=== PATIENT | male | born 1965 | race Caucasian/White ===

== ENCOUNTER 2023-04-20 14:21 | Emergency (ER) | payer SELFPAY ==
[2023-04-20] VITALS (10 sets, daily range): BP systolic 145–188; BP diastolic 92–122
[2023-04-20 14:52] LABS: % Basophils 0.5 % (0-2); % Eosinophils 0.1 % (0-6); % Immature Granulocytes 0.5 % (0-0.5); % Lymphocytes 7.5 % (20.5-51.1); % Monocytes 1.8 % (1.7-9.3); % Neutrophils 89.6 % (42.2-75.2); Absolute Basophils 0.1 10^3/uL (0-0.2); Absolute Immature Granulocytes 0.1 10^3/uL (0-0.05); Absolute Monocytes 0.2 10^3/uL (0.1-0.6); Absolute Neutrophils 11.7 10^3/uL (1.4-6.5); Hematocrit 46.8 % (39.0-52.0); Hemoglobin 16.5 g/dL (13.0-18.0); Mean Corp Hgb Conc. 35.3 g/dL (33.0-37.0); Mean Corpuscular Hgb 30.2 pg (27.0-31.0); Mean Corpuscular Volume 85.6 fL (80.0-94.0); Mean Platelet Volume 9.4 fL (7.4-10.4); Nucleated Red Blood Cells % 0 % (-); Platelet Count 252 10^3/uL (130-400); Red Blood Cell Count 5.47 10^6/uL (4.70-6.10); Red Cell Dist. Width 12.5 % (11.5-14.5)
[2023-04-20 15:04] LABS: ALT (SGPT) 15 U/L (0-50); AST (SGOT) 31 U/L (17-59); Albumin 2.5 g/dl (3.5-5.0); Alkaline Phosphatase 77 U/L (38-126); Blood Urea Nitrogen 12 mg/dl (9-20); Calcium 8.1 mg/dl (8.4-10.2); Carbon Dioxide 28 mmol/L (22-30); Chloride 107 mmol/L (98-107); Glucose 135 mg/dl (70-99); Potassium 4.5 mmol/L (3.5-5.1); Sodium 134 mmol/L (135-145); Total Bilirubin 0.5 mg/dl (0.2-1.3); Total Protein 5.3 g/dl (6.3-8.2); eGFR > 60.00
[2023-04-20 15:16] LABS: Troponin I 0.018 ng/ml
--- NOTE | 2023-04-20 16:25 | ED.GENMED ---
History of Present Illness
<Tori De La Torre PA-C - Last Filed: 04/21/23 11:02>
General
Chief Complaint: Blood Pressure Problem
Source: patient
Exam Limitations: none
Time Seen by Provider: 04/20/23 16:21
Nursing documentation reviewed up to this point in time: agreed with
Travel History
Have you had any contact with someone who has COVID-19?: No
Do you have any symptoms of coronavirus? Fever > 100 degrees, chills, cough, shortness of breath, sore throat, loss of taste or smell, muscle aches, or headache?: No
History of Present Illness
History of Present Illness:
This is a 57-year-old male with past medical history of hypertension presenting to the emergency department today with concerns of high blood pressure and intermittent headaches for past 3 months. Patient states that his current headache has been
much more severe than ones he has had in the past few months. He states that this headache is severe and he feels it all over, is associated with photophobia, nausea, vomiting. He also states that to the headache, he started experience visual
changes and started to see different colors and sparkling in his peripheral vision. Patient denies chest pain, shortness of breath, decreased urinary output, syncopal episodes, dizziness, lightheadedness, recent illnesses, fevers, chills. Patient
states that Excedrin has helped with his symptoms a bit, but have not fully resolved this current headache episode
Review of Systems
<Tori De La Torre PA-C - Last Filed: 04/21/23 11:02>
Review of Systems
All Other Systems: ROS reviewed and negative except as documented in HPI and ROS
Phy Exam
<Tori De La Torre PA-C - Last Filed: 04/21/23 11:02>
Physical Exam
Physical Exam:
General: Pt is awake and alert, No acute distress.
Skin: Warm, dry, and intact without rashes or lesions.
HEENT:
Head: Nc/at. Nontender to palpation. No visible or palpable masses, no depressions or scarring.
Cardiac: RRR with no murmurs, rubs, or gallops. Normal S1/S2.
PV: No clubbing/cyanosis/edema. Pulses: DP and PT 2+ bilaterally.
Pulmonary: Chest wall is symmetric and without deformity. No signs of trauma. Lung sounds are clear in all lobes bilaterally without rales, rhonchi, or wheezes.
Abdomen: Abdomen is soft, symmetric, and non-tender without distention.
Neuro: Patient is AAOx3. CN 2-12 intact. No involuntary movements noted. Good muscle bulk and tone. Strength 5/5 BUE/BLE. Finger to nose, heel to tan, diadokinesia intact.
Course
<Tori De La Torre PA-C - Last Filed: 04/21/23 11:02>
Orders/Labs/Results
Orders:
Orders
04/20/23 14:26
Electrocardiogram (*1) Urgent
Reason for Study: Chest Pain
EKG- Treatment ONCE
04/20/23 14:35
Complete Blood Count/With Diff Urgent
Comprehensive Metabolic Panel Urgent
Troponin I Urgent
04/20/23 16:41
Cardiac Monitoring- Treatment ONCE
Metoprolol [Lopressor] 10 mg IV NOW STA
04/20/23 16:42
CT Head W/o Iv Contrast Urgent
Comment:
Reason For Exam: severe headache, high blood pressure
04/20/23 16:43
Diphenhydramine [Benadryl] 12.5 mg IV NOW STA
Metoclopramide [Reglan] 10 mg IM NOW STA
04/20/23 17:04
Metoclopramide [Reglan] 10 mg IV NOW STA
04/20/23 17:08
0.9% Sodium Chloride 1000 ml [Nss] 1,000 ml IV BOLUS
04/20/23 17:57
Labetalol HCl [Trandate] 10 mg IV NOW STA
04/20/23 18:22
Acetaminophen [Tylenol] 650 mg PO NOW STA
04/20/23 18:33
Labetalol HCl [Trandate] 10 mg IV NOW STA
04/20/23 19:07
Ketorolac [Toradol] 15 mg IV NOW STA
Abnormal Lab Results
04/20/23
14:35
WBC 13.0 H 10^3/uL
(4.8-10.8)
Abs Immat Gran (auto) 0.1 H 10^3/uL
(0-0.05)
Absolute Neuts (auto) 11.7 H 10^3/uL
(1.4-6.5)
Absolute Lymphs (auto) 1.0 L 10^3/uL
(1.2-3.4)
Neutrophils % 89.6 H %
(42.2-75.2)
Lymphocytes % 7.5 L %
(20.5-51.1)
Sodium 134 L mmol/L
(135-145)
Glucose 135 H mg/dl
(70-99)
Calcium 8.1 L mg/dl
(8.4-10.2)
Total Protein 5.3 L g/dl
(6.3-8.2)
Albumin 2.5 L g/dl
(3.5-5.0)
04/20/23 14:35
04/20/23 14:35
Vital Signs
Initial and Last Documented VS:
Initial Vital Signs
Temp Pulse Resp BP Pulse Ox
98.2 F 92 20 188/111 97
04/20/23 14:24 04/20/23 14:24 04/20/23 14:24 04/20/23 14:24 04/20/23 14:24
Last Documented Vital Signs
Temp Pulse Resp BP Pulse Ox
98.2 F 69 16 177/93 97
04/20/23 14:24 04/20/23 20:00 04/20/23 20:00 04/20/23 20:00 04/20/23 16:25
<Wally Hernandez, DO - Last Filed: 04/20/23 20:54>
Orders/Labs/Results
Orders:
Orders
04/20/23 14:26
Electrocardiogram (*1) Urgent
Reason for Study: Chest Pain
EKG- Treatment ONCE
04/20/23 14:35
Complete Blood Count/With Diff Urgent
Comprehensive Metabolic Panel Urgent
Troponin I Urgent
04/20/23 16:41
Cardiac Monitoring- Treatment ONCE
Metoprolol [Lopressor] 10 mg IV NOW STA
04/20/23 16:42
CT Head W/o Iv Contrast Urgent
Comment:
Reason For Exam: severe headache, high blood pressure
04/20/23 16:43
Diphenhydramine [Benadryl] 12.5 mg IV NOW STA
Metoclopramide [Reglan] 10 mg IM NOW STA
04/20/23 17:04
Metoclopramide [Reglan] 10 mg IV NOW STA
04/20/23 17:08
0.9% Sodium Chloride 1000 ml [Nss] 1,000 ml IV BOLUS
04/20/23 17:57
Labetalol HCl [Trandate] 10 mg IV NOW STA
04/20/23 18:22
Acetaminophen [Tylenol] 650 mg PO NOW STA
04/20/23 18:33
Labetalol HCl [Trandate] 10 mg IV NOW STA
04/20/23 19:07
Ketorolac [Toradol] 15 mg IV NOW STA
Abnormal Lab Results
04/20/23
14:35
WBC 13.0 H 10^3/uL
(4.8-10.8)
Abs Immat Gran (auto) 0.1 H 10^3/uL
(0-0.05)
Absolute Neuts (auto) 11.7 H 10^3/uL
(1.4-6.5)
Absolute Lymphs (auto) 1.0 L 10^3/uL
(1.2-3.4)
Neutrophils % 89.6 H %
(42.2-75.2)
Lymphocytes % 7.5 L %
(20.5-51.1)
Sodium 134 L mmol/L
(135-145)
Glucose 135 H mg/dl
(70-99)
Calcium 8.1 L mg/dl
(8.4-10.2)
Total Protein 5.3 L g/dl
(6.3-8.2)
Albumin 2.5 L g/dl
(3.5-5.0)
04/20/23 14:35
04/20/23 14:35
Vital Signs
Initial and Last Documented VS:
Initial Vital Signs
Temp Pulse Resp BP Pulse Ox
98.2 F 92 20 188/111 97
04/20/23 14:24 04/20/23 14:24 04/20/23 14:24 04/20/23 14:24 04/20/23 14:24
Last Documented Vital Signs
Temp Pulse Resp BP Pulse Ox
98.2 F 69 16 177/93 97
04/20/23 14:24 04/20/23 20:00 04/20/23 20:00 04/20/23 20:00 04/20/23 16:25
[place];Tori De La Torre PA-C - Last Filed: 04/21/23 11:02>
MDM/Problems Addressed
Differential Diagnosis Includes:
Differentials include migraine headache, tension headache, intraparenchymal hemorrhage, occipital neuralgia, cluster headache, ischemic stroke
MDM/Problems Addressed:
headache
HTN
Chronic conditions affecting care: HTN
Acute Exacerbation and/or Progression of Chronic Illness: HTN
<Tori De La Torre PA-C - Last Filed: 04/21/23 11:02>
*Pulse Oximetry
Patient hypoxic: no
*EKG
Interpretation: normal
Comparison EKG: no comparison EKG present
Heart Rate: 73
Rate: normal
Rhythm: sinus
[place]: normal axis
Interval: normal interval, normal QT interval and normal SC interval
QRS Pattern: normal QRS
Ischemia: no ischemia
*Air Technician Interpretation
Rate: normal
Interpretation: normal
Heart Rate: 70
Rhythm: sinus
*Critical Care Note
Total Time (30-74mins, 75-104mins- exclusive of procedures): Not Applicable
Data Reviewed
Review of Other/Old Records Reveals: Records (no previous records to review ) and Discharge Summary (no discharge summaries to review in [facility])
Source: patient and records
<JUSTINA Hager Last Filed: 04/21/23 11:02>
Patient Management
Escalation/DeEscalation of care consider admission/obs:
Patient is a 57-year-old male past medical history of hypertension presenting today with a severe headache and concerns regarding his blood pressure for the past [address] scan is negative for any bleed or any other acute intracranial
abnormality. His EKG shows normal sinus rhythm. His history and physical exam is consistent with acute migraine. Patient's blood pressure was able to be controlled with IV labetalol here, and headache controlled was Toradol, Tylenol, and Reglan.
Patient stable for discharge, will start his HC TZ�lisinopril once daily. He will follow-up with his primary
ED Attending Note
<JUSTINA Hager Last Filed: 03/06/24 11:02>
-
Portions of this chart may have been created with voice recognition software.� Occasional wrong word or��sound alike� substitutions may have occurred due to the inherent limitations of voice recognition software.
<Wally Hernandez, - Last Filed: 04/20/23 20:54>
ED Attending Note
Patient seen and examined by attending physician: Yes
I performed a history and physical exam of patient and discussed management with resident, I reviewed resident's note and agree with documented findings and plan of care.: Yes
ED Attending Note:
I have reviewed and agree with history and treatment plan by Toir De La Torre. Patient with normal neurologic exam, hypertensive. Suspect migraine versus hypertensive headache. CT head pending. IV labetalol, Benadryl and Reglan ordered. Blood
pressure improved, headache dissipated. Patient denies any chest pain. Stable for discharge.
Discharge Plan
Departure
Patient Disposition: Home (Routine Discharge)
Date of Disposition: 04/20/23
Time of Disposition: 20:52
Patient with high blood pressure during this ER visit?: Yes
Condition: Good
Discharge Problem:
Migraine, High blood pressure
Instructions: High Blood Pressure (DC), BLOOD PRESSURE
Prescriptions:
New
rizatriptan 10 mg tablet,disintegrating
10 mg PO ONCE MDD 3 PRN (Reason: migraine headache) Qty: 10 0RF
Referrals:
Cari Young MD [Family Provider] - Call in 1-3 days for appt
Activity Restrictions/Additional Instructions:
Please return emergency department should you experience trouble speaking, chest pain, shortness of breath, lightheadedness, fainting spells, or other concerning signs or symptoms.
Please start your lisinopril�HCTZ combo pill tomorrow once daily for your blood pressure, and follow-up with your primary care provider. Continue to log your blood pressure.
Interventions
Interventions:
*Risk Screen - Suicide Last Done: 04/20/23 16:27
*General Assessment Last Done: 04/20/23 16:27
*Neglect/Abuse Screening Last Done: 04/20/23 16:27
*ED COVID-19 Vaccine History Last Done: 04/20/23 16:26
*Nursing Disposition Last Done: 04/20/23 21:02
ED- Cardiac Assessment Last Done: 04/20/23 16:26
ED- Neurological Assessment Last Done: 04/20/23 16:26
ED- Pulmonary Assessment Last Done: 04/20/23 16:26
Discharge Date and Time
Discharge Date/Time: 04/20/23 21:03
[2023-04-20] MEDS: BENADRYL 12.5 MG IV (17:01)
[2023-04-20] MEDS: REGLAN 10 MG IV (17:04)
[2023-04-20] MEDS: LOPRESSOR 10 MG IV (17:07)
[2023-04-20] MEDS: NSS 1000 IV (17:15)
[2023-04-20] MEDS: TRANDATE 10 MG IV ×2 (18:08→18:50)
[2023-04-20] MEDS: TYLENOL 650 MG PO (18:32)
[2023-04-20] MEDS: TORADOL 15 MG IV (19:09)
== END 2023-04-20 21:03 | disposition home or self-care (01) ==
LOC: EMR 14:21
PROVIDERS: Emergency Medicine; EMERGENCY PHYSICIAN Emergency Medicine; FAMILY PHYSICIAN Family Medicine
DX: G43.909 Migraine, unspecified, not intractable, without status migrainosus (principal); I10 Essential (primary) hypertension
CPT/HCPCS: 99285; 96374; 96375 ×4; 96376; 96361; 70450; 80053; 84484; 85025; 93005

== ENCOUNTER 2023-04-27 14:16 | Inpatient (IN) | payer OTHER, SELFPAY ==
[2023-04-27] VITALS (16 sets, daily range): BP systolic 114–193; BP diastolic 70–136
--- NOTE | 2023-04-27 11:28 | ED.GENMED ---
History of Present Illness
General
Chief Complaint: Chest Pain
Source: patient
Exam Limitations: none
Time Seen by Provider: 04/27/23 11:13
Travel History
Have you had any contact with someone who has COVID-19?: No
Do you have any symptoms of coronavirus? Fever > 100 degrees, chills, cough, shortness of breath, sore throat, loss of taste or smell, muscle aches, or headache?: No
History of Present Illness
History of Present Illness:
See MDM
Past History
Past History
ED Past Medical History: HTN and Other (Migraines)
Social History
Tobacco: Non-smoker
Alcohol: None
Phy Exam
Physical Exam
Physical Exam:
See MDM
Scores
Heart Score for Chest Pain Patients
STEMI patient?: No
History: Slightly or Non-Suspicious
ECG: Normal
Age: >45 - <65 years
Risk Factors: 1 or 2 Risk Factors
Troponin: >/= 3 x Normal Limit
Heart Score for Chest Pain Patients: 4
Heart Score Risk: 20.3% MACE over next 6 weeks
Course
Orders/Labs/Results
Orders:
Orders
04/27/23 10:20
Electrocardiogram (*1) Urgent
Reason for Study: Chest Pain
EKG- Treatment ONCE
04/27/23 11:27
0.9% Sodium Chloride 1000 ml [Nss] 1,000 ml IV BOLUS
Diphenhydramine [Benadryl] 25 mg IV NOW STA
Ketorolac [Toradol] 30 mg IV NOW STA
Metoclopramide [Reglan] 10 mg IV NOW STA
04/27/23 11:30
Complete Blood Count/With Diff Urgent
Comprehensive Metabolic Panel Urgent
Troponin I Urgent
04/27/23 12:42
Aspirin Chewable [Low Strength Aspirin] 324 mg PO NOW STA
04/27/23 12:43
Aspirin Chewable [Low Strength Aspirin] 324 mg .ROUTE .STK-MED ONE
Abnormal Lab Results
04/27/23
11:30
Absolute Neuts (auto) 6.9 H 10^3/uL
(1.4-6.5)
Absolute Monos (auto) 0.7 H 10^3/uL
(0.1-0.6)
Lymphocytes % 18.8 L %
(20.5-51.1)
Sodium 133 L mmol/L
(135-145)
Glucose 101 H mg/dl
(70-99)
Calcium 8.3 L mg/dl
(8.4-10.2)
Troponin I 0.277 H* ng/ml
Total Protein 5.4 L g/dl
(6.3-8.2)
Albumin 2.5 L g/dl
(3.5-5.0)
04/27/23 11:30
04/27/23 11:30
Vital Signs
Initial and Last Documented VS:
Initial Vital Signs
Temp Pulse Resp BP Pulse Ox
98 F 80 20 193/136 98
04/27/23 10:15 04/27/23 10:15 04/27/23 10:15 04/27/23 10:15 04/27/23 10:15
Last Documented Vital Signs
Temp Pulse Resp BP Pulse Ox
98 F 64 11 163/100 97
04/27/23 10:15 04/27/23 12:30 04/27/23 12:00 04/27/23 12:16 04/27/23 12:30
MDM/Problems Addressed
Differential Diagnosis Includes:
HPI and MDM Narrative:
57-year-old male presenting for evaluation of chest discomfort and elevated blood pressure. He was recently seen in the emergency department last week for migraines. His migraines have been increasing over the past year or so. Patient states he
has been compliant with his combination lisinopril/hydrochlorothiazide pill and has a PCP appointment next week. He also admits that he does not check his blood pressure routinely so he does not know his baseline
Patient was concerned because his blood pressure still elevated today. Daughter at bedside indicating that he has decreased his caffeine intake
Will obtain basic blood work to rule out endorgan damage. EKG nonischemic. Will add troponin given duration of symptoms. He states symptoms are not worse with exertion making ACS less likely. Will reevaluate blood pressure once headache is
improved
Physical exam
General: Well appearing and non-toxic
HEENT: protecting airway
Neck: appears supple
CV: No evidence of cyanosis. Regular rate and rhythm
Resp: No accessory muscle use
Abd: Non-distended
Extremities: No deformities. No leg edema
Neuro: alert
Psych: Normal affect
Skin: Intact
Problems Addressed including Acute and Chronic Conditions affecting care:
1. Hypertension
Acuity: acute
Prognosis: unstable
Details: Will reevaluate after headache is treated
2. Migraine
Acuity: acute
Prognosis: stable
Details: Will give Toradol, Reglan and Benadryl. Recent CT head negative
Updates
Patient found to have an elevated troponin. He is currently chest pain-free. Given no other significant lab abnormalities, ACS is favored over hypertension emergency. Blood pressure now 160/100. On reassessment, he looks better but will give
aspirin and admit for cardiac evaluation
Differential Diagnosis (but not limited to): Migraine, hypertension
Testing considered: CT head
Drug therapy (if applicable): OTC meds, please see d/c instruction regarding Rx drugs
Amount and/or Complexity of Data Reviewed
Clinical info obtained from: Patient. Daughter states that he has decreased caffeine intake recently
External data reviewed: N/A
Labs I independently reviewed (but not limited to): Elevated troponin
Radiology: N/A
Pulse Ox: not hypoxic
EKG independently reviewed: Sinus rhythm, normal axis, no STEMI. Questionable hyperacute T waves
Orthopedic Surgeon: Sinus rhythm
Critical Care: N/A
Risk of Complication:
Social Determinants of health: Good social support
Discussed with other providers: Cardiology, hospitalist
Escalation of Care includes Admit/Obs: Given the uncontrolled blood pressure with elevated troponin, will admit
Occasional wrong word or 'sound a like' substitutions may have occurred due to the inherent limitations of voice recognition software. Read the chart carefully and recognize, using context, where substitutions have occurred.
*Critical Care Note
Total Time (30-74mins, 75-104mins- exclusive of procedures): Not Applicable
ED Attending Note
-
Portions of this chart may have been created with voice recognition software.� Occasional wrong word or��sound alike� substitutions may have occurred due to the inherent limitations of voice recognition software.
Discharge Plan
Departure
Patient Disposition: Admit
Date of Disposition: 04/27/23
Time of Disposition: 12:48
Admit to: Telemetry
Presentation/result/management discussed w/ accepting MD/DO: Hospitalist
Discharge Problem:
Chest pain, Migraine, HTN (hypertension)
Prescriptions:
No Action
rizatriptan 10 mg tablet,disintegrating
10 mg PO ONCE MDD 3 PRN (Reason: migraine headache) Qty: 10 0RF
lisinopril-hydrochlorothiazide 10-12.5 mg Tablet
1 tab PO DAILY
Referrals:
UNKNOWN - PT DOES,NOT KNOW [Family Provider] -
Interventions
Interventions:
*Risk Screen - Suicide Last Done: 04/27/23 10:15
*General Assessment Last Done: 04/27/23 10:15
*Neglect/Abuse Screening Last Done: 04/27/23 10:15
*ED COVID-19 Vaccine History Last Done: 04/27/23 11:15
ED- Cardiac Assessment Last Done: 04/27/23 11:29
ED- Neurological Assessment Last Done: 04/27/23 11:29
ED- Pulmonary Assessment Last Done: 04/27/23 11:29
[2023-04-27] MEDS: NSS 1000 IV (11:35)
[2023-04-27] MEDS: TORADOL 30 MG IV (11:35)
[2023-04-27] MEDS: REGLAN 10 MG IV (11:41)
[2023-04-27] MEDS: BENADRYL 25 MG IV (11:41)
[2023-04-27 12:00] LABS: % Basophils 0.8 % (0-2); % Eosinophils 1.5 % (0-6); % Immature Granulocytes 0.3 % (0-0.5); % Lymphocytes 18.8 % (20.5-51.1); % Monocytes 7.1 % (1.7-9.3); % Neutrophils 71.5 % (42.2-75.2); Absolute Basophils 0.1 10^3/uL (0-0.2); Absolute Eosinophils 0.1 10^3/uL (0-0.7); Absolute Lymphocytes 1.8 10^3/uL (1.2-3.4); Absolute Monocytes 0.7 10^3/uL (0.1-0.6); Absolute Neutrophils 6.9 10^3/uL (1.4-6.5); Hematocrit 43.3 % (39.0-52.0); Hemoglobin 15.4 g/dL (13.0-18.0); Mean Corp Hgb Conc. 35.6 g/dL (33.0-37.0); Mean Corpuscular Hgb 30.5 pg (27.0-31.0); Mean Corpuscular Volume 85.7 fL (80.0-94.0); Mean Platelet Volume 9.3 fL (7.4-10.4); Nucleated Red Blood Cells % 0 % (-); Platelet Count 294 10^3/uL (130-400); Red Blood Cell Count 5.05 10^6/uL (4.70-6.10); Red Cell Dist. Width 12.2 % (11.5-14.5); White Blood Cell Count 9.6 10^3/uL (4.8-10.8)
[2023-04-27 12:18] LABS: ALT (SGPT) 13 U/L (0-50); AST (SGOT) 28 U/L (17-59); Albumin 2.5 g/dl (3.5-5.0); Alkaline Phosphatase 81 U/L (38-126); Blood Urea Nitrogen 14 mg/dl (9-20); Calcium 8.3 mg/dl (8.4-10.2); Carbon Dioxide 28 mmol/L (22-30); Chloride 106 mmol/L (98-107); Glucose 101 mg/dl (70-99); Potassium 4.2 mmol/L (3.5-5.1); Sodium 133 mmol/L (135-145); Total Bilirubin 0.4 mg/dl (0.2-1.3); Total Protein 5.4 g/dl (6.3-8.2); eGFR > 60.00
[2023-04-27 12:27] LABS: Troponin I 0.277 ng/ml
[2023-04-27] MEDS: LOW STRENGTH ASPIRIN 324 MG PO (12:44)
--- NOTE | 2023-04-27 13:11 | HPS.HSE ---
Addendum entered and electronically signed by Jere Lora MD 04/27/23 20:56:
I saw and examined the patient.
The [employer] CR[employer] OPERATOR's note was reviewed and I agree with the note.
Comment:
57 y/o male with past medical history of HTN, migraines, exercise-induced asthma, prior alcohol abuse stopped 2021, daily marijuana use and diverticulitis presented with chest pain since very early in the morning. He had diaphoresis and the pain was
a piercing/stabbing pain on the left side of his chest. He also had SBP in the 190s at home with some headache. He denied any blurry vision, numbness or tingling.
Vital Signs Noted
Physical Exam
General: Not in acute distress
HEENT: Normocephalic
Respiratory: Clear and Non Labored Respirations
Cardiac: S1/S2 and Regular Rhythm
GI: Soft, Non Tender, Non Distended and Normal Bowel Sounds
Musculoskeletal: No Cyanosis and No Edema
Skin: Warm and Dry
Neuro: AAO x 3
Psych: Calm
Assessment/Plan
#Concern for NSTEMI
Troponin 0.277 will trend
-Cath today
-Consult CBC cardiology
-Continue IV heparin drip until cath
-Aspirin given in ER
EKG: NSR 67 bpm, QTc 414 MS otherwise normal
#Hypertensive emergency
193/136 > 163/100
Patient for [employer] today
Patient took lisinopril 10 mg/12.5 HCTZ this a.m.
Labetalol as per cardiology
Will monitor blood pressure post cardiac cath for need for additional medication
#Hx migraine headaches
-Takes as needed Excedrin migraine
#Exercise-induced asthma-patient reports stopped meds over 5 years ago
#Prior alcohol abuse stopped 2021
Prior 12 pack a day beer stopped 2021
Daily marijuana use
-Cessation advised
diverticulitis via colonoscopy age 50
DVT prophylaxis
IV heparin drip
Full code
Very high blood pressures with chest pains needing cardiac cath is a high risk encounter.
Original Note:
Family Physician
-
Family Physician: NOT KNOW UNKNOWN - PT DOES
Chief Complaint
-
Chest pain
History of Present Illness
57-year-old male complaining of chest discomfort midsternal to left arm with elevated blood pressure. He complains he thinks he has had this pain for approximately on and off 3 to 4 months although this a.m. was persistent in the midsternal area
05/25 radiating to his left arm. He does report some left-sided neck pain yesterday nonreproducible with movement and last week upper jaw pain. He denies any current chest pain at the present time during my exam.
He reports being seen a week ago in the emergency department for increasing migraines over the past year or so . During his ER admission 1 week ago it was noticed that he had hypertension. He was placed on lisinopril/HCTZ 11/26. which he began
but has not been taking blood pressures at home. He typically drinks 24 ounces of coffee daily although states he recently cut back has not had any in 2 to 3 days although did have Excedrin yesterday for a headache. He denies current headache,
blurred vision, chest pain palpitations, shortness of breath, cough, abdominal pain, nausea, vomiting, diarrhea, fever, chills. He has
PMH HTN, migraines, exercise-induced asthma, prior alcohol abuse stopped 2021, daily marijuana use, diverticulitis
Medical History
Past Medical History
Past Medical History: Reports Other
Additional Past Medical History:
Hypertension�benign dx 04/20/2023
Migraine headaches
exercise-induced asthma-patient reports stopped meds over 5 years ago
prior alcohol abuse stopped 2021
daily marijuana use
diverticulitis via colonoscopy age 50
Past Surgical History: Reports Other
Additional Past Surgical History:
diverticulitis via colonoscopy age 50
Social History
Tobacco: Non-smoker
Alcohol: Former (12 beers a day quit 2021)
Drug: Marijuana (Daily)
Personal:
Living: With Family
Employment: Employed
Family History
Family History: Other (Mother cardiomyopathy, HTN, lung cancer age 70, father living mitral valve repair, prostate cancer)
Allergies / Home Medications
Allergies reflects when Allergies were last updated in [employer].
Home Medications with original date entered in [employer]
Allergy/Medication List:
Allergies
Allergy/AdvReac Type Severity Reaction Status Date / Time
shellfish derived Allergy Anaphylaxis Verified 04/27/23 10:19
Home Medications
idcraku-kjzsruakjjpkd-nuhdjzxn 250 mg-250 mg-65 mg tablet (Excedrin Migraine) 2 tab PO BIDPRN PRN headache 04/27/23
lisinopril 10 mg-hydrochlorothiazide 12.5 mg tablet 1 tab PO DAILY Blood Pressure 04/27/23
nruthxaj-hkgniv-lhzzy extract 5 mg-6 mg-150 mg capsule (Fruit and Vegetable Daily) 6 cap PO DAILY Supplement 04/27/23
Review of Systems
-
History Source: Patient and Family (daughter)
A 12 point ROS was completed and negative except as noted: Yes
Constitutional: Denies Fever or Chills
EENT: Denies Sore Throat or Runny Nose
Respiratory: Denies Cough or Trouble Breathing
Cardiac: Reports Chest Pain (Midsternal to left arm); Denies Diaphoresis, Palpitations or Syncope
Abdomen/GI: Denies Abdominal Pain, Nausea, Vomiting, Diarrhea, Constipated or Bloody Stools
: Denies Dysuria, Frequency, Flank Pain, Incontinence or Difficulty Voiding
Musculoskeletal: Denies Joint Pain or Edema
Skin: Denies Itching or Rash
Neurological: Denies Dizzy or Headache
Endocrine: Reports No Symptoms
Hematologic/Lymphatic: Reports No Symptoms
Psych: Reports Calm
Physical Exam
Vital Signs
Vital Signs
Temp Pulse Resp BP Pulse Ox
98 F 64 11 163/100 97
04/27/23 10:15 04/27/23 12:30 04/27/23 12:00 04/27/23 12:16 04/27/23 12:30
Physical Exam
General: Comfortable and Conversant; No Fever or Chills
HEENT: NormoCephalic, Anicteric, PERRLA, [place] Conjunctivae and No Ptosis
Respiratory: Clear; No Wheezes, Rales or Rhonchi
Cardiac: S1/S2 and Regular Rhythm; No Murmur, Rub, Gallop or Peripheral Edema
Breast: Deferred by me
GI: Soft, Non Tender, Non Distended, Normal Bowel Sounds and No Hepatosplenomegaly
Rectal: Deferred by Provider
Genito-urinary: Deferred by me
Musculoskeletal: No Clubbing, No Cyanosis and No Edema
Skin: Warm and Dry; No Rash
Neuro: AO x 3, No Motor Deficits, Nonfocal/grossly intact, Cranial Nerves Intact and No Sensory Deficits; No Slurred Speech, Facial Droop or Tremors
Psych: Calm
Laboratory Results
-
04/27/23 11:30
04/27/23 11:30
Laboratory Results
Total Bilirubin 0.4 mg/dl (0.2-1.3) 04/27/23 11:30
AST 28 U/L (17-59) 04/27/23 11:30
ALT 13 U/L (0-50) 04/27/23 11:30
Alkaline Phosphatase 81 U/L (38-126) 04/27/23 11:30
Troponin I 0.277 ng/ml H* 04/27/23 11:30
Impression/Plan
-
Impression/plan:
Admit to IVU
#NSTEMI
Troponin 0.277 will trend
-N.p.o. for cath today
-Consult CBC cardiology
-IV heparin drip
-Aspirin given in ER
EKG: NSR 67 bpm, QTc 414 MS otherwise normal
#Hypertensive emergency
193/136 > 163/100
Patient to go to [employer] now
Patient took lisinopril 10 mg/12.5 HCTZ this a.m.
Will monitor blood pressure post cardiac cath for need for additional medication
#Hx migraine headaches
-Takes as needed Excedrin migraine
#Exercise-induced asthma-patient reports stopped meds over 5 years ago
#Prior alcohol abuse stopped 2021
Prior 12 pack a day beer stopped 2021
Daily marijuana use
-Cessation advised
diverticulitis via colonoscopy age 50
DVT prophylaxis
IV heparin drip
Full code
--- NOTE | 2023-04-27 13:22 | CON.CAR ---
Addendum entered and electronically signed by Tony Don MD 04/27/23 14:57:
I saw and examined the patient.
The SLOT SUPERVISOR's note was reviewed and I agree with the note.
Comment: 57-year-old male with hypertension who presented to the emergency department with a chief complaint of chest pain.� His chest pain woke him up at 4:45 this morning.� It persisted for 15 minutes.� He reports it was stabbing in sensation.� He
had associated cold sweats.� He had more discomfort when he ambulated in his home.� He was found to have an elevated troponin and he was also hypertensive upon presentation. Given his elevated troponin and history of chest pain will rule out NSTEMI
with coronary angiography.
-Will give IV labetalol now
-Aspirin statin and heparin drip; will send to [facility]
-Blood pressure control
-TTE pending
Original Note:
Consultation
Consultation Request
Date/Time Consultation Requested: 04/27/23 12:50
Date/Time Consultation Performed: 04/27/23 13:00
Requesting Provider: Dr. Ruiz
Performing Provider: DOTTIE Bledsoe for Dr. Don
Reason for Consultation: Chest pain
Medical History
-
Chief Complaint: Chest pain
History of Present Illness:
Wally Membreno is a 57-year-old male with hypertension who presented to the emergency department with a chief complaint of chest pain. His chest pain woke him up at 4:45 this morning. It persisted for 15 minutes. He reports it was stabbing in
sensation. He had associated cold sweats. He had more discomfort when he ambulated in his home. While driving to the emergency department, he had pain in his left elbow and his left hand had a tingling sensation. He presented hypertensive. He
was found to have an abnormal troponin. He had prior alcohol misuse. In the past he was consuming 12 beers per day. He has not had any alcohol for 2 years. He does not smoke tobacco but has about one marijuana joint per day. He was seen in the
emergency department 04/20/2023. He had high blood pressure. He also had a migraine. He does not feel like the headache has ever gone away since he left the emergency room.
Past Medical History
Past Medical History: HTN
Social History
Tobacco: Non-Smoker
Alcohol: Former (No EtOH for 2 years. Twelve beers per day in the past.)
Drug: Marijuana
Personal:
Living: With Family
Employment: Employed ([employer])
Family History
Family History: Other (Mother with cardiomyopathy [type unknown].)
Allergies / Home Medications
Allergy/AdvReac Type Severity Reaction Status Date / Time
shellfish derived Allergy Anaphylaxis Verified 04/27/23 10:19
Medication Instructions Recorded Confirmed Type
hgafoeq-znxyoybmboxcy-kakxnxza 250 2 tab PO BIDPRN PRN headache 04/27/23 04/27/23 History
mg-250 mg-65 mg tablet (Excedrin
Migraine)
lisinopril 10 1 tab PO DAILY Blood Pressure 04/27/23 04/27/23 History
mg-hydrochlorothiazide 12.5 mg
tablet
jbmzpmgx-lbfyru-mutsd extract 5 6 cap PO DAILY Supplement 04/27/23 04/27/23 History
mg-6 mg-150 mg capsule (Fruit and
Vegetable Daily)
Review of Systems
-
History Source: Patient
All other systems: Negative unless noted (See HPI)
Physical Exam
Vital Signs
Temp Pulse Resp BP Pulse Ox
98 F 63 11 186/106 98
04/27/23 10:15 04/27/23 13:00 04/27/23 12:00 04/27/23 13:00 04/27/23 13:00
Lab Results
04/27/23 11:30
Troponin I 0.277 ng/ml H* 04/27/23 11:30
Physical Exam
General: Well Developed, Well Nourished, No Apparent Distress and Comfortable
HEENT: Normocephalic, Anicteric and Moist Mucous Membranes
Respiratory: Clear and Non Labored Respirations
Cardiac: S1/S2 and Regular Rhythm; Negative Peripheral Edema
Breast: Deferred by me
GI: Soft, Non Tender, Non Distended and Normal Bowel Sounds
Rectal: Deferred by Provider
Genito-urinary: No Costovertebral Tender
Musculoskeletal: No Clubbing, No Cyanosis and No Edema
Skin: Warm and Dry
Neuro: AO x 3
Hematologic/Lymphatic: No Lymphadenopathy
Psych: Calm
Impression / Plan
-
Background: 57M with hypertension who presented to the emergency department with a chief complaint of chest pain.
Impression/Plan:
ACS
-Troponin 0.277, he is chest pain free currently
-He received ASA 324mg, start heparin gtt
-Fasting lipid panel & Hgba1c in am
-Echocardiogram
-Cardiac catheterization today
HTN Urgency
-Escalate medical therapy, Labetalol 10mg IV x 1 now & anticipate transitioning to carvedilol
Migraine, per primary
Data Reviewed
-
EKG: Report Reviewed by me (Sinus rhythm, rate 67)
Labs: Labs Reviewed by me
Old Records: Reviewed
[2023-04-27] MEDS: HEPARIN 25000 UNITS/250 ML IV (13:31)
[2023-04-27] MEDS: HEPARIN 4000 UNITS IV (13:35)
[2023-04-27 13:46] LABS: APTT 28.4 Sec (23.4-35.0)
[2023-04-27] MEDS: TRANDATE 10 MG IV (13:57)
--- NOTE | 2023-04-27 15:19 | ITS.CL.CATH ---
Otolaryngology Surgeon - Catheterization
Cardiac Catheterization
Procedure Report:
CARDIAC CATHETERIZATION REPORT
Date of Procedure: 04/27/2023
Referring: Tony Don MD
Indication: Suspected ACS
HEMODYNAMIC DATA
AO: 150/94
LV: 150/14
LEFT VENTRICULOGRAPHY: Normal segmental wall motion with EF 61%
CORONARY ANGIOGRAPHY
Dominance: Right
Left Main: Normal
LAD: Mild luminal irregularities
Circumflex: Mild luminal irregularities
RCA: Mild mid RCA ectasia with mild luminal irregularities
Closure Device: None-the procedure was performed via the right radial artery. The Karel's test was normal prior to the procedure.
Radiation (mGy): 212
DAP (cm2.Gy): 22.6
Fluoroscopy time: 1.6 minutes
CONCLUSIONS
1: Systemic hypertension
2: Normal left ventricular wall motion with EF 61%
3. No significant CAD-there are mild luminal irregularities and I recommend chronic low dose aspirin and high intensity statin therapy
Copy to: Tony Don MD
Arcenio Hardin MD, [facility], [facility]
--- NOTE | 2023-04-27 15:45 | PTCARENOTE ---
Received pt from medical laboratory assistant. AOx3, complains of headache, 04/24. No complaints of chest pain/discomfort. Oriented to room and unit. Right radial site CDI. Educated on R band and removal. Call larry within reach.
--- NOTE | 2023-04-27 15:53 | CM ---
Reviewed chart. Met with Mr. Membreno and his spouse to review discharge plans. He states prior to admission he resides with his spouse and daughter in a two story home with twelve steps to enter. He states he can sleep on the first floor, but has
to go up a full flight of steps to get to full bathroom. He states he has a powder room on the first floor. He states prior to admission he was independent with ambulation and adls. He states he does not have any DME in the home. He states he
currently does not have any health insurance. Medical work-up in progress. The discharge plan is to return home with his spouse and daughter when medically stable.
[2023-04-27] MEDS: TYLENOL 650 MG PO ×2 (16:25→20:35)
[2023-04-27] MEDS: LIPITOR 40 MG PO (17:40)
--- NOTE | 2023-04-27 17:50 | PTCARENOTE ---
Pt c/o of headache pain increasing after receiving tylenol at 1625. RN made Dr. Lora aware. Received orders for CT head.
--- NOTE | 2023-04-27 20:44 | PTCARENOTE ---
assumed care of patient at the change of shift. AAOx3. at the bedside. patient c/o 2/10 headache, Tylenol given, see mar. educated patient to inform RN with any changes. Hr SR on tele 60s. bp 173/98, repeat-160/95. updated Ayana Ramirez COMMUNICATIONS ASSISTANT.
will monitor for now, no new orders. R radial site CDI, + radial pulse. ambulating in the room independently. answered all questions. call larry within reach.
--- NOTE | 2023-04-27 22:51 | W.PN.UPDATE ---
Update Note
Progress Note Update
Nursing reporting patient with continued hypertension now 169/98, and HR 68. Patient with c/o mild headache, PRN Tylenol administered with some relief. 1x order for Hydralazine 10mg IV now given for blood pressure control.
[2023-04-27] MEDS: APRESOLINE 10 MG IV (23:00)
--- NOTE | 2023-04-27 23:05 | PTCARENOTE ---
Addendum entered by Arie Goldstein RN 04/28/23 01:12:
improved bp after IV hydralazine. bp 145.84. HR SR 70.
Original Note:
blood pressure elevated 169/98. HR 60s-70s. updated Ayana SCHMIDT. hydralazine 10 mg IV x1 ordered. bp 166/92, HR 75. ordered hydralazine given, see apr.
[2023-04-28] VITALS (18 sets, daily range): BP systolic 145–192; BP diastolic 84–112
[2023-04-28] MEDS: TYLENOL 650 MG PO ×4 (03:29→23:40)
[2023-04-28 04:04] LABS: % Basophils 0.9 % (0-2); % Eosinophils 3.2 % (0-6); % Immature Granulocytes 0.4 % (0-0.5); % Lymphocytes 26.5 % (20.5-51.1); % Monocytes 7.7 % (1.7-9.3); % Neutrophils 61.3 % (42.2-75.2); Absolute Basophils 0.1 10^3/uL (0-0.2); Absolute Eosinophils 0.3 10^3/uL (0-0.7); Absolute Lymphocytes 2.6 10^3/uL (1.2-3.4); Absolute Monocytes 0.8 10^3/uL (0.1-0.6); Absolute Neutrophils 6.1 10^3/uL (1.4-6.5); Hemoglobin 14.5 g/dL (13.0-18.0); Mean Corp Hgb Conc. 35.4 g/dL (33.0-37.0); Mean Corpuscular Hgb 30.2 pg (27.0-31.0); Mean Corpuscular Volume 85.4 fL (80.0-94.0); Mean Platelet Volume 9.4 fL (7.4-10.4); Nucleated Red Blood Cells % 0 % (-); Platelet Count 275 10^3/uL (130-400); Red Cell Dist. Width 12.3 % (11.5-14.5)
[2023-04-28 04:30] LABS: ALT (SGPT) 12 U/L (0-50); AST (SGOT) 43 U/L (17-59); Albumin 2.5 g/dl (3.5-5.0); Alkaline Phosphatase 76 U/L (38-126); Blood Urea Nitrogen 16 mg/dl (9-20); Carbon Dioxide 23 mmol/L (22-30); Chloride 110 mmol/L (98-107); Estimated Creatinine Clearance > 125 ml/min; Glucose 95 mg/dl (70-99); HDL Cholesterol 90 mg/dl; Potassium 4.1 mmol/L (3.5-5.1); Sodium 134 mmol/L (135-145); Total Bilirubin 0.5 mg/dl (0.2-1.3); Total Protein 5.3 g/dl (6.3-8.2); Triglyceride 286 mg/dl (10-149); Very Low Density Lipoprotein 57 mg/dl (0-30); eGFR > 60.00
[2023-04-28 04:41] LABS: LDL Cholesterol, Calculated 293 mg/dl; Total Cholesterol 440 mg/dl (50-199)
[2023-04-28] MEDS: LOW STRENGTH ASPIRIN 81 MG PO (07:22)
[2023-04-28] MEDS: ZESTRIL 20 MG PO ×2 (07:22→20:02)
[2023-04-28] MEDS: ORETIC 25 MG PO (07:22)
--- NOTE | 2023-04-28 09:52 | PTCARENOTE ---
Pt given am meds, JR 175/94. Pt ate breakfast. BP rechecked in RUE was 184/110, LUE was 188/112. aware. Awaiting orders.
--- NOTE | 2023-04-28 10:03 | W.PN.CD ---
Today's Communication / Plan
-
- ECHO today
- Increase lisinopril
- Add Amlodipine.
Impression / Plan
-
Background: 57M with hypertension who presented to the emergency department with a chief complaint of chest pain.
Impression/Plan:
ACS
-Troponin 0.277, he is chest pain free currently
-s/p cath 04/27/23 - no coronary artery disease
- ECHO today
HTN Urgency
-elevated BPO despite on IV lebatolol, prn Hydralazine and on Lisinopril / HCTZ
- Will add Amlodipine and increase Lisinopril to 20 mg BID. Continue HCTZ 25 mg QD
- With his young age, will not add BB as no CAD
- Will ad Amlodipine 5mg
- Goal to get SBP to 150s in a day and then down to <130mmHg
Migraine, per primary
Physical Exam
Vital Signs/Labs
Vital Signs
Temp Pulse Resp BP Pulse Ox
97.7 F 76 16 188/112 97
04/28/23 07:40 04/28/23 09:45 04/28/23 07:40 04/28/23 09:42 04/28/23 07:40
04/27/23 04/28/23 04/29/23
06:59 06:59 06:59
Actual Weight 105 kg
04/28/23 03:24
04/28/23 03:24
APTT Cancelled 04/27/23 19:36
Triglycerides 286 mg/dl (10-149) H 04/28/23 03:24
LDL Cholesterol, Calc 293 mg/dl 04/28/23 03:24
VLDL Cholesterol, Calc 57 mg/dl (0-30) H 04/28/23 03:24
HDL Cholesterol 90 mg/dl 04/28/23 03:24
LAB Results
03/02/0704/27/23 04/27/23
11:30 14:30 22:00
Troponin I 0.277 H* Cancelled Cancelled
Physical Exam
Constitutional: No acute distress and Comfortable
EENT: Anicteric and Moist mucous membranes
Cardiovascular: Rhythm & rate is regular, Pedal edema is absent, JVD pressure is normal and Systolic murmur absent
Respiratory: Respiratory effort normal, Wheeze Absent and Crackles Absent
GI: Soft, Non tender and Normal bowel sounds
Neuro/Psych: Oriented and AO x 3
Other: Skin
Data Reviewed
-
Date of Service: April 28, 2023
Medical Decision Making: Reviewed Test Results, Independent Historian Assessment, Test Interpretation and Review of Case with other Provider
EKG: Tracing Personally Visualized and interpreted
X-Ray/CT/US/MRI/NUC/PET: Report Reviewed by me
Labs: Labs Reviewed by me
Old Records: Reviewed
[2023-04-28] MEDS: NORVASC 5 MG PO (10:40)
--- NOTE | 2023-04-28 15:27 | CM ---
Reviewed chart. Met with and Mrs. Membreno to review discharge plans. He states he is feeling a little better. Headache is gone. We reviewed HRIS and doing the Medical Assistance Application. Prior to admission he resides with his spouse
and daughter in a two story home with twelve steps to enter. He can stay on the first floor but need to go up a full flight of steps to get to bedroom. He has a powder room on the first floor. Prior to admission he was independent with ambulation
and adls. He does not have any DME in the home. Currently he does not have any health insurance. Left message with [employer] to see if they can assist. Left message. Medical work-up in progress. The discharge plan is to return
home with his spouse and daughter when medically stable.
[2023-04-28] MEDS: APRESOLINE 5 MG IV (16:38)
[2023-04-28] MEDS: LIPITOR 40 MG PO (18:04)
--- NOTE | 2023-04-28 21:38 | W.PN.HOSP.TC ---
Today's Communication/Plan
-
Please see below
Assessment / Plan
Assessment / Plan
Physical Exam
General: Not in acute distress
HEENT: Normocephalic
Respiratory: Clear and Non Labored Respirations
Cardiac: S1/S2 and Regular Rhythm
GI: Soft, Non Tender, Non Distended and Normal Bowel Sounds
Musculoskeletal: No Cyanosis and No Edema
Skin: Warm and Dry
Neuro: AAO x 3
Psych: Calm
Assessment/Plan
#Presentation with Chest Pain
-Cardiac cath this admission: 'No significant CAD-there are mild luminal irregularities and I recommend chronic low dose aspirin and high intensity statin therapy' as per service electrician's cath report
-Consult CBC cardiology
-Status post IV Heparin Drip
-Aspirin given in ER
-Continue low dose Aspirin and high intensity statin
#Hypertensive emergency
Patient took lisinopril 10 mg/12.5 HCTZ at home but BP still uncontrolled
Amlodipine has been added and Lisinopril increased to 20 mg BID.
Continue HCTZ 25 mg QD
Goal SBP to 150s in 24-48 hours followed by <130 mmHg
No beta loly as patient does not have CAD and in the setting of his young age
#Hx migraine headaches
-Takes as needed Excedrin migraine
-Monitor headaches as blood pressures improve
#Exercise-induced asthma-patient reports stopped meds over 5 years ago
#Prior alcohol abuse stopped 2021
Prior� 12 pack a day beer stopped 2021
Daily marijuana use
-Cessation advised
�diverticulitis via colonoscopy age 50
DVT prophylaxis: Lovenox subq. SCDs.
Full code
Anticipated Discharge: 24 - 48 hours
Subjective/Interval History
-
Date of Service: April 28, 2023
Patient was seen and examined. He reported feeling better now, headache is better although blood pressures were elevated this morning.
Objective Data
-
Vital Signs:
Vital Signs
Temp Pulse Resp BP Pulse Ox
97.7 F 96 18 185/97 96
04/28/23 15:11 04/28/23 19:45 04/28/23 15:11 04/28/23 18:05 04/28/23 15:11
I&O
04/27/23 04/28/23 04/29/23
06:59 06:59 06:59
Intake Total 400 / 400
Balance 400 / 400
--- NOTE | 2023-04-28 21:57 | PTCARENOTE ---
assumed care of pt from previous shift RN, sinus rhythm-sinus tachycardia on tele w HR 90-100's, + peripheral pulses, no edema, lungs CTA, denies CP or SOB. +bs, tolerating PO intake, voids spontaneously. PIV x2 flush easily. plan of care reviewed w
the pt and questions encouraged.
[2023-04-28] MEDS: MELATONIN 5 MG PO (23:39)
[2023-04-29] VITALS (14 sets, daily range): BP systolic 121–169; BP diastolic 72–103; PULSE 79–86; O2SAT 96–97
[2023-04-29 04:56] LABS: % Basophils 0.7 % (0-2); % Eosinophils 2.3 % (0-6); % Immature Granulocytes 0.4 % (0-0.5); % Lymphocytes 22.2 % (20.5-51.1); % Monocytes 10.2 % (1.7-9.3); % Neutrophils 64.2 % (42.2-75.2); Absolute Basophils 0.1 10^3/uL (0-0.2); Absolute Eosinophils 0.3 10^3/uL (0-0.7); Absolute Lymphocytes 2.5 10^3/uL (1.2-3.4); Absolute Monocytes 1.2 10^3/uL (0.1-0.6); Absolute Neutrophils 7.2 10^3/uL (1.4-6.5); Hematocrit 41.7 % (39.0-52.0); Hemoglobin 14.5 g/dL (13.0-18.0); Mean Corp Hgb Conc. 34.8 g/dL (33.0-37.0); Mean Corpuscular Volume 86.2 fL (80.0-94.0); Mean Platelet Volume 9.2 fL (7.4-10.4); Nucleated Red Blood Cells % 0 % (-); Platelet Count 282 10^3/uL (130-400); Red Blood Cell Count 4.84 10^6/uL (4.70-6.10); Red Cell Dist. Width 12.6 % (11.5-14.5); White Blood Cell Count 11.2 10^3/uL (4.8-10.8)
[2023-04-29 05:17] LABS: ALT (SGPT) 11 U/L (0-50); AST (SGOT) 32 U/L (17-59); Albumin 2.3 g/dl (3.5-5.0); Alkaline Phosphatase 70 U/L (38-126); Blood Urea Nitrogen 19 mg/dl (9-20); Calcium 8.1 mg/dl (8.4-10.2); Carbon Dioxide 26 mmol/L (22-30); Chloride 106 mmol/L (98-107); Estimated Creatinine Clearance 111 ml/min; Glucose 107 mg/dl (70-99); Potassium 4.4 mmol/L (3.5-5.1); Sodium 130 mmol/L (135-145); Total Bilirubin 0.7 mg/dl (0.2-1.3); eGFR > 60.00
--- NOTE | 2023-04-29 08:14 | W.PN.CD ---
Today's Communication / Plan
-
switch amlodipine 5 to nifedipine XL 60
OK for home with daily BP checks and log book. He will followup with Mary RODRÍGUEZ and Arian
Impression / Plan
-
Background: 57M with hypertension who presented to the emergency department with a chief complaint of chest pain.
Impression/Plan:
ACS
-Troponin 0.277, he is chest pain free currently
-s/p cath 04/27/23 - no coronary artery disease
-LVG showed normal LV function. There is no or significant MR
HTN Urgency
-Amlodipine does not seem effective. Will stop amlodipine 5mg and start Nifedipine XL 60mg qd today. This is more potent antihypertensive
- Will add Amlodipine and increase Lisinopril to 20 mg BID. Continue HCTZ 25 mg QD
- With his young age, will not add BB as no CAD
- Goal to get SBP to 150s in a day and then down to <130mmHg
Dispo
- Can send home with further titration of antihypertensives to be done in office stetting- he needs to get home machine, check and record BP qAM and bring ALL readings to ALL physician visits (Dr RODRÍGUEZ and Dr Don).
Migraine, per primary
Physical Exam
Vital Signs/Labs
Vital Signs
Temp Pulse Resp BP Pulse Ox
97.8 F 75 16 155/99 95
04/29/23 04:33 04/29/23 04:33 04/29/23 04:33 04/29/23 04:33 04/29/23 04:33
04/28/23 04/29/23 04/30/23
06:59 06:59 06:59
Actual Weight 231 lb 7.766 oz
04/29/23 04:38
04/29/23 04:38
APTT Cancelled 04/27/23 19:36
Triglycerides 286 mg/dl (10-149) H 04/28/23 03:24
LDL Cholesterol, Calc 293 mg/dl 04/28/23 03:24
VLDL Cholesterol, Calc 57 mg/dl (0-30) H 04/28/23 03:24
HDL Cholesterol 90 mg/dl 04/28/23 03:24
LAB Results
04/27/23 04/27/23 04/27/23
11:30 14:30 22:00
Troponin I 0.277 H* Cancelled Cancelled
Physical Exam
Constitutional: No acute distress and Comfortable
EENT: Anicteric
Cardiovascular: Rhythm & rate is regular and Murmur/rub/gallop absent
Respiratory: Respiratory effort normal, Lungs clear to auscul. and Wheeze Absent
Neuro/Psych: AO x 3 and Motor deficits absent
Other: Other
Data Reviewed
-
Date of Service: April 29, 2023
[2023-04-29] MEDS: LOW STRENGTH ASPIRIN 81 MG PO (08:35)
[2023-04-29] MEDS: ZESTRIL 20 MG PO ×2 (08:35→20:04)
[2023-04-29] MEDS: PROCARDIA XL (EXTENDED RELEASE) 60 MG PO (08:35)
[2023-04-29] MEDS: ORETIC 25 MG PO (08:35)
--- NOTE | 2023-04-29 08:40 | PTCARENOTE ---
Rec'd pt AAOx3 from prev nsg shift. Pt w/no c/o CP or SOB this AM. BP still elevated this am, BP 146/100. Dr Hardin in to see pt & meds adjusted. This RN discussed med changes w/pt & spouse. Pt w/no addtl needs at this time. Call larry within reach
& plan of care ongoing.
[2023-04-29] MEDS: NORVASC PO (09:10)
--- NOTE | 2023-04-29 09:21 | PN.CDI ---
CDI
- -
CDI:
Physician Documentation Request
Admit Date: 04/27/23 14:16
Dear Doctor Guido,
Please review the following and provide your response in the progress notes.
Clinical Indicators:
Pt admitted with HTN Emergency s/p Cardiac Cath
Sodium levels are below /Did get IVFs
04/27/23 04/28/23 04/29/23
11:30 03:24 04:38
Sodium 133 L 134 L 130 L
Based on the above, could you clarify in the progress notes, the appropriate diagnosis, if significant, that supports the above abnormalities and additional evaluation, monitoring and/or treatment rendered:
Hyponatremia
Abnormal lab value of clinical insignificance
Other
Use of terms such as suspected, likely, concern for, or probable (associated with a specific diagnosis that is being evaluated, monitored, or treated as if it exists) are acceptable and can be coded in the inpatient setting, when documented at the
time of discharge.
Thank you,
Ofelia Meyer RN
CDI Specialist
[facility]
Please use your independent medical judgment in providing your response.
--- NOTE | 2023-04-29 09:36 | PTOTSP ---
Patient is independent with functional mobility. No skilled PT needs at this time. Will D/C PT services.
--- NOTE | 2023-04-29 10:38 | PTOTSP ---
pt currently requires no assistance to complete simple ADLs, functional transfers, ambulation. no overt deficits noted, no acute OT needs identified. will sign off.
[2023-04-29] MEDS: TYLENOL 650 MG PO ×2 (11:32→17:37)
--- NOTE | 2023-04-29 15:43 | PTCARENOTE ---
Pt's BP improving through out shift. BP after ambulating in the halls this afternoon 122/72 at 1307. BP at 1509 121/77, HR 89. Pt w/no CP or SOB. Plan of care ongoing.
--- NOTE | 2023-04-29 16:11 | W.PN.HOSP.TC ---
Today's Communication/Plan
-
Hydrochlorothiazide on hold due to low sodium -- will check with cardiology about their opinion on this
Monitor BP and headache symptoms
If BP okay without hydrochlorothiazide, patient can be discharged tomorrow
Assessment / Plan
Assessment / Plan
Physical Exam
General: Not in acute distress
HEENT: Normocephalic
Respiratory: Clear and Non Labored Respirations
Cardiac: S1/S2 and Regular Rhythm
GI: Soft, Non Tender, Non Distended and Normal Bowel Sounds
Musculoskeletal: No Cyanosis and No Edema
Skin: Warm and Dry
Neuro: AAO x 3
Psych: Calm
Assessment/Plan
#Presentation with Chest Pain
-Cardiac cath this admission: 'No significant CAD-there are mild luminal irregularities and I recommend chronic low dose aspirin and high intensity statin therapy' as per back order clerk's cath report
-Consulted [facility] cardiology, recommendations appreciated
-Status post IV Heparin Drip
-Aspirin given in ER
-Continue low dose Aspirin and high intensity statin
#Hypertensive emergency
Patient took lisinopril 10 mg/12.5 HCTZ at home but BP still uncontrolled
Lisinopril increased to 20 mg BID.
Amlodipine was started, but now discontinued.
Procardia XL 60 mg daily started.
HCTZ 25 mg QD now on hold due to hyponatremia
Goal SBP to 150s in 24-48 hours followed by <130 mmHg
No beta loly as patient does not have CAD and in the setting of his young age
#Hyponatremia
Will hold HCTZ
Check with cardiology about stopping HCTZ on discharge
#History of migraine headaches
-Takes as needed Excedrin migraine
-Monitor headaches as blood pressures improve
#Exercise-induced asthma-patient reports stopped medications over 5 years ago
#Prior alcohol abuse stopped 2021
Prior�12 pack a day beer stopped 2021
Daily marijuana use
-Cessation advised
�diverticulitis via colonoscopy age 50
DVT prophylaxis: Lovenox subq. SCDs.
Full code
Anticipated Discharge: 24 - 48 hours
Subjective/Interval History
-
Date of Service: April 29, 2023
Patient was seen and examined. He reported his headache is a lot better, maybe a 1 out 10 in severity now, he denied any other new symptoms or complaints.
Objective Data
-
Labs:
Laboratory Results
04/29/23
04:38
WBC 11.2 H
Hgb 14.5
Hct 41.7
Plt Count 282
Sodium 130 L
Potassium 4.4
Chloride 106
Carbon Dioxide 26
BUN 19
Creatinine 0.9
Glucose 107 H
Calcium 8.1 L
Total Bilirubin 0.7
AST 32
ALT 11
Alkaline Phosphatase 70
Vital Signs:
Vital Signs
Temp Pulse Resp BP Pulse Ox
97.9 F 89 20 121/77 94
04/29/23 15:03 04/29/23 15:09 04/29/23 15:03 04/29/23 15:09 04/29/23 15:03
I&O
04/28/23 04/29/23 04/30/23
06:59 06:59 06:59
Intake Total 400 / 400 960 / 960
Balance 400 / 400 960 / 960
[2023-04-29] MEDS: LIPITOR 40 MG PO (17:41)
[2023-04-30] VITALS (8 sets, daily range): BP systolic 89–139; BP diastolic 62–84
--- NOTE | 2023-04-30 00:12 | PTCARENOTE ---
Denied any complaints when questioned earlier. Sleeping at present, he initially asked for melatonin, then did not want it at bedtime. SR in the 80's in the monitor.
--- NOTE | 2023-04-30 08:04 | W.PN.CD ---
Today's Communication / Plan
-
-Patient can be discharged to home today on the following BP meds:
Lisinopril 20 mg BID
Coreg 6.25 mg BID (adding beta-loly as patient had sinus tachycardia to 120s on telemetry)
Procardia XL 60 mg daily
-Will discontinue HCTZ due to hyponatremia.
-Low-dose daily Aspirin 81 mg daily is recommended by Interventionalist due to luminal irregularities).
-Familial hypercholesterolemia: LDL was 293--Will increase Atorvastatin to 80 mg daily.\\
-Echocardiogram ordered for this morning prior to discharge.
Impression / Plan
-
Background: 57M with hypertension who presented to the emergency department with a chief complaint of chest pain.
Impression/Plan:
Hypertensive crisis:
-Patient can be discharged to home today on the following BP meds:
Lisinopril 20 mg BID
Coreg 6.25 mg BID (adding beta-loly as patient had sinus tachycardia to 120s on telemetry)
Procardia XL 60 mg daily.
-Will discontinue HCTZ due to hyponatremia
-Echocardiogram ordered for this morning prior to discharge.
Acute ischemic nonischemic myocardial injury in the setting of hypertensive crisis:
-Troponin 0.277; cath 04/27/23 - no coronary artery disease (but low-dose daily aspirin is recommended by Interventionalist due to luminal irregularities).
Familial hypercholesterolemia: LDL was 293--Will increase atorvastatin to 80 mg daily.
Should follow-up with Dr. RODRÍGUEZ and Dr. Don as outpatient.
Physical Exam
Vital Signs/Labs
Vital Signs
Temp Pulse Resp BP Pulse Ox
98.2 F 92 20 133/82 97
04/30/23 06:54 04/30/23 07:00 04/30/23 06:54 04/30/23 06:56 04/30/23 06:54
APTT Cancelled 04/27/23 19:36
Triglycerides 286 mg/dl (10-149) H 04/28/23 03:24
LDL Cholesterol, Calc 293 mg/dl 04/28/23 03:24
VLDL Cholesterol, Calc 57 mg/dl (0-30) H 04/28/23 03:24
HDL Cholesterol 90 mg/dl 04/28/23 03:24
LAB Results
04/27/23 04/27/23 04/27/23
11:30 14:30 22:00
Troponin I 0.277 H* Cancelled Cancelled
Physical Exam
Constitutional: No acute distress and Comfortable
EENT: Anicteric
Cardiovascular: Rhythm & rate is regular, Pedal edema is absent, Systolic murmur absent and S1S2 is normal
Respiratory: Respiratory effort normal and Lungs clear to auscul.
GI: Soft
Neuro/Psych: AO x 3
Other: Skin (Warm, dry, intact)
Data Reviewed
-
Date of Service: April 30, 2023
EKG: Tracing Personally Visualized and interpreted (Telemetry: Sinus rhythm, sinus tachycardia to 120s)
Echo: Ordered by me (Pending)
Medical Tests (PFT, Pathology etc): Report Reviewed by me (Cardiac catheterization 04/27/2023: No obstructive coronary artery disease.), Discussed with Patient and Discussed with Family (, Liya, at bedside)
Labs: Labs Reviewed by me
[2023-04-30] MEDS: COREG 6.25 MG PO (09:07)
[2023-04-30] MEDS: PROCARDIA XL (EXTENDED RELEASE) 60 MG PO (09:07)
[2023-04-30] MEDS: LOW STRENGTH ASPIRIN 81 MG PO (09:07)
[2023-04-30] MEDS: ZESTRIL 20 MG PO (09:08)
[2023-04-30 09:33] LABS: Hematocrit 40.2 % (39.0-52.0); Hemoglobin 14.4 g/dL (13.0-18.0); Mean Corp Hgb Conc. 35.8 g/dL (33.0-37.0); Mean Corpuscular Hgb 30.5 pg (27.0-31.0); Mean Corpuscular Volume 85.2 fL (80.0-94.0); Mean Platelet Volume 8.9 fL (7.4-10.4); Platelet Count 269 10^3/uL (130-400); Red Blood Cell Count 4.72 10^6/uL (4.70-6.10); Red Cell Dist. Width 12.6 % (11.5-14.5); White Blood Cell Count 8.8 10^3/uL (4.8-10.8)
[2023-04-30 09:42] LABS: Blood Urea Nitrogen 24 mg/dl (9-20); Calcium 8.2 mg/dl (8.4-10.2); Carbon Dioxide 26 mmol/L (22-30); Chloride 104 mmol/L (98-107); Estimated Creatinine Clearance 111 ml/min; Glucose 135 mg/dl (70-99); Sodium 133 mmol/L (135-145); eGFR > 60.00
--- NOTE | 2023-04-30 11:42 | PTCARENOTE ---
Addendum entered by Ana Rosa Montenegro RN 04/30/23 11:43:
Molly SCHMIDT decreased po Coreg dosage.
Original Note:
patient up ambulating in hallway, returned back to bed, was lying there and he called out c/o feeliing dizzy, BP 105/70, TT Molly SCHMIDT.
--- NOTE | 2023-04-30 12:09 | PTCARENOTE ---
Addendum entered by Ana Rosa Montenegro RN 04/30/23 13:42:
BP 102/68, patient feeling better.
Original Note:
BP 94/66, patient is anxious, dizzy, doesnot feel well, Molly VICE PRESIDENT CLIENT SERVICES aware, ordered 250ccNSS x 1.
--- NOTE | 2023-04-30 12:45 | W.PN.HOSP.TC ---
Addendum entered and electronically signed by Jere Lora MD 04/30/23 16:44:
Per Dr. Kline, Coreg should be 3.125 mg BID, not 6.25 mg BID.
Original Note:
Today's Communication/Plan
-
Discharge today
Assessment / Plan
Assessment / Plan
Physical Exam
General: Not in acute distress
HEENT: Normocephalic
Respiratory: Clear and Non Labored Respirations
Cardiac: S1/S2 and Regular Rhythm
GI: Soft, Non Tender, Non Distended and Normal Bowel Sounds
Musculoskeletal: No Cyanosis and No Edema
Skin: Warm and Dry
Neuro: AAO x 3
Psych: Calm
Assessment/Plan
#Presentation with Chest Pain
#Elevated Troponin
#Acute ischemic nonischemic myocardial injury in the setting of hypertensive crisis
-Cardiac cath this admission: 'No significant CAD-there are mild luminal irregularities and I recommend chronic low dose aspirin and high intensity statin therapy' as per patch washer's cath report
-Consulted [facility] cardiology, recommendations appreciated
-Status post IV Heparin Drip
-Aspirin given in ER
-Continue low dose Aspirin and high intensity statin
-Continue Aspirin 81 mg daily
#Hypertensive crisis
#Mild Concentric Left Ventricular Hypertrophy on Echocardiogram
Stop home lisinopril 10 mg/12.5 HCTZ combination medicine due to hyponatremia
Continue Lisinopril 20 mg BID.
Started Coreg 6.25 mg BID (cardiology added beta-loly as patient had sinus tachycardia to 120s bpm on telemetry)
Amlodipine was started, but now discontinued.
Continue Procardia XL 60 mg daily
#Hyponatremia
Will hold HCTZ
Check with cardiology about stopping HCTZ on discharge - cardiology okay with this
#Hyperlipidemia
-Increase Atorvastatin to 80 mg daily due to LDL of 293
#History of migraine headaches
-Takes as needed Excedrin migraine
-Monitor headaches as blood pressures improve
#Exercise-induced asthma-patient reports stopped medications over 5 years ago
#Prior alcohol abuse stopped 2021
Prior�12 pack a day beer stopped 2021
Daily marijuana use
-Cessation advised
Diverticulitis via colonoscopy age 50
DVT prophylaxis: Lovenox subq. SCDs.
Full code
More than 30 minutes spent in discharge including
Final examination of the patient
Summarizing hospital stay
Instructions for continuing care to all relevant caregivers
Preparation of discharge records, prescriptions, and referral forms
Total time spent (in minutes): 37
Anticipated Discharge: Today
Subjective/Interval History
-
Date of Service: April 30, 2023
Patient was seen and examined. He reported headache has very much improved, he was able to walk in the hallways well, and he is okay with going home today.
Objective Data
-
Labs:
Laboratory Results
04/30/23
09:19
WBC 8.8
Hgb 14.4
Hct 40.2
Plt Count 269
Sodium 133 L
Potassium 4.0
Chloride 104
Carbon Dioxide 26
BUN 24 H
Creatinine 0.9
Glucose 135 H
Calcium 8.2 L
Vital Signs:
Vital Signs
Temp Pulse Resp BP Pulse Ox
97.8 F 95 20 105/70 97
04/30/23 12:01 04/30/23 11:37 04/30/23 12:01 04/30/23 11:37 04/30/23 12:01
I&O
04/29/23 04/30/23 05/01/23
06:59 06:59 06:59
Intake Total 1200 / 1200
Balance 1200 / 1200
--- NOTE | 2023-04-30 15:05 | CM ---
spoke to pt i room, he confirmed he does not have insur at this time. he tells me he works and spoke to [facility] and he does not qualify for MA as he makes too much. he is getting on his ex-'s policy in may. they live together and her employer
allows domestic partners on the plan. he has the # [id number] for financial asst and knows to call once he gets the bill. information on local free clinics given to pt.
[2023-04-30] MEDS: TYLENOL 650 MG PO (15:06)
--- NOTE | 2023-04-30 16:43 | W.DS.TRANS ---
DC Summary - [facility]
-
Discharge Instructions:
Discharge Diagnosis/Procedures #Presentation with Chest Pain
#Elevated Troponin
#Acute ischemic non-ischemic myocardial injury
in the setting of hypertensive crisis
#Hypertensive crisis
#Mild Concentric Left Ventricular Hypertrophy on
Echocardiogram
#Hyponatremia
#Hyperlipidemia
#History of migraine headaches
#Exercise-induced asthma
#Prior alcohol abuse stopped 2021
#Prior 12 pack a day beer stopped 2021
#Daily marijuana use
#Diverticulitis via colonoscopy age [age] years old
Diet 2 Gram Sodium,Low Cholesterol,Low Fat
Activity As tolerated
Instructions: High Blood Pressure (DC)
Low Salt Diet
Controlling your blood pressure through lifestyle
High blood pressure emergencies
Lowering Your Risk of High Blood Pressure
Stand-Alone Forms: DC Instructions- Cath/EP Lab
Changes to Home Medications: Yes
Discharge Medications:
DC Medications w/original date entered in [facility]
vadxyjk-fgdjrsuvbitht-uhvkqrwf 250 mg-250 mg-65 mg tablet (Excedrin Migraine) 2 tab PO BIDPRN PRN headache 04/27/23
ejnxqdfi-kjncpt-ubucr extract 5 mg-6 mg-150 mg capsule (Fruit and Vegetable Daily) 6 cap PO DAILY Supplement 04/27/23
aspirin 81 mg chewable tablet (Children's Aspirin) 81 mg PO DAILY #30 tabs 04/30/23
atorvastatin 80 mg tablet 80 mg PO QPM #30 tabs 04/30/23
carvedilol 3.125 mg tablet (Coreg) 3.125 mg PO Q12H #60 tabs 04/30/23
lisinopril 20 mg tablet 20 mg PO BID #60 tabs 04/30/23
nifedipine 60 mg tablet,extended release 60 mg PO DAILY #30 tabs 04/30/23
Home Medication Changes
New medications are Aspirin, Atorvastatin, Carvedilol, Lisinopril, and Nifedipine
Combination Hydrochlorothiazide-Lisinopril medication stopped
Pending Results: No
Total time spent discharging patient (in min): 37
--- NOTE | 2023-04-30 18:31 | PTCARENOTE ---
D/C instructions given to patient and , both verbalizes understanding. INT D/C'd, telemetry d/C'd, personal belongings packed and sent home with patient. D/C to home via wc accompanied by staff.
--- NOTE | 2023-05-03 14:57 | W.DCSUMMARY ---
Discharge Summary
Discharge Data
Date of Admission: 04/27/23
Date of Discharge: 04/30/23
Total time spent discharging patient (in min): 37
-
Pending Results: No
Hospital Course
57 y/o male with past medical history of hypertension, migraines, exercise-induced asthma, prior alcohol abuse stopped 2021, daily marijuana use and diverticulitis presented with chest pain since very early in the morning on the day of presentation.
He had diaphoresis and the pain was a piercing/stabbing pain on the left side of his chest. He also had SBP in the 190s mmHg at home with some headache. He denied any blurry vision, numbness or tingling.
Patient was started on Heparin Drip and cardiac cath was performed. Patient received intravenous Labetalol. Cardiac Cath was done on April 27, 2023 and showed, per accounting file clerk's report, 'CONCLUSIONS - 1: Systemic hypertension; 2: Normal left
ventricular wall motion with EF 61%; 3.� No significant CAD-there are mild luminal irregularities and I recommend chronic low dose aspirin and high intensity statin therapy.' Due to ongoing high blood pressure, patient's Lisinopril was increased to
20 mg BID. Patient's Hydrochlorothiazide was continued. Amlodipine 5 mg daily was added but was later switched to Nifedipine XL 60 mg daily.
Patient's hydrochlorothiazide was stopped due to hyponatremia. Cardiology placed patient on Coreg relatively small dose. Patient's chest pain and headache resolved and he was stable for discharge.
Discharge Plan
-
Patient Disposition: Home (Routine Discharge)
Discharge Diagnosis/Procedures: #Presentation with Chest Pain
#Elevated Troponin
#Acute ischemic non-ischemic myocardial injury in the setting of hypertensive crisis
#Hypertensive crisis
#Mild Concentric Left Ventricular Hypertrophy on Echocardiogram
#Hyponatremia
#Hyperlipidemia
#History of migraine headaches
#Exercise-induced asthma
#Prior alcohol abuse stopped 2021
#Prior 12 pack a day beer stopped 2021
#Daily marijuana use
#Diverticulitis via colonoscopy age [age] years old
Condition: Good
Diet: Low Fat, Low Cholesterol and 2 Gram Sodium
Activity: As tolerated
Instructions: High Blood Pressure (DC), Low Salt Diet, Controlling your blood pressure through lifestyle, High blood pressure emergencies, Lowering Your Risk of High Blood Pressure
Stand Alone Forms: DC Instructions- Cath/EP Lab
Referrals:
Solange Samson CRNP [Specified Professional Personl] - 05/19/23 10:00 am (Cardiology followup appointment)
UNKNOWN - PT DOES,NOT KNOW [Family Provider] -
Prescriptions:
New
atorvastatin 80 mg Tablet
80 mg PO QPM Qty: 30 1RF
aspirin [Children's Aspirin] 81 mg Tablet,Chewable
81 mg PO DAILY Qty: 30 1RF
nifedipine 60 mg Tablet Extended Release
60 mg PO DAILY Qty: 30 1RF
lisinopril 20 mg Tablet
20 mg PO BID Qty: 60 1RF
carvedilol [Coreg] 3.125 mg tablet
3.125 mg PO Q12H Qty: 60 1RF
Continued
Excedrin Migraine 250-250-65 mg Tablet
2 tab PO BIDPRN PRN (Reason: headache)
Fruit and Vegetable Daily 5-6-150 mg Capsule
6 cap PO DAILY
Discontinued
lisinopril-hydrochlorothiazide 10-12.5 mg Tablet
1 tab PO DAILY
Discharge Orders:
Discharge Patient (As Directed); Ordered 04/30/23
Ordered By: Jere Lora
Care Plan Goals
Care Plan Goals:
Problem: Readiness for enhanced knowledge related to diagnosis and treatment plan
Goal: Understand your diagnosis and treatment plan needs, including medications if applicable.
Instructions: Know your diagnosis, underlying causes and treatment plan options, including medications if applicable. Consult with your health care team to learn about your diagnosis and treatment plan, including medications if applicable.
Discharge Date and Time
Discharge Date/Time: 04/30/23 18:41
== END 2023-04-30 18:41 | disposition home or self-care (01) | DRG 287 ==
LOC: IVU 14:16
PROVIDERS: Clinical Nurse Specialist Family Health; Nurse Practitioner Gerontology; ADMITTING PHYSICIAN Hospitalist; CONSULT PHYSICIAN Internal Medicine Cardiovascular Disease; EMERGENCY PHYSICIAN Student in an Organized Health Care Education/Training Program
PROC: B2111ZZ Fluoroscopy of Multiple Coronary Arteries using Low Osmolar Contrast (ICD-10-PCS; 2023-04-27)
PROC: 4A023N7 Measurement of Cardiac Sampling and Pressure, Left Heart, Percutaneous Approach (ICD-10-PCS; 2023-04-27)
PROC: B2151ZZ Fluoroscopy of Left Heart using Low Osmolar Contrast (ICD-10-PCS; 2023-04-27)
DX: I11.9 Hypertensive heart disease without heart failure (principal); E87.1 Hypo-osmolality and hyponatremia; I16.1 Hypertensive emergency; K57.92 Diverticulitis of intestine, part unspecified, without perforation or abscess without bleeding; I5A Non-ischemic myocardial injury (non-traumatic); I10 Essential (primary) hypertension; J45.990 Exercise induced bronchospasm; F12.90 Cannabis use, unspecified, uncomplicated; I16.0 Hypertensive urgency; Z79.82 Long term (current) use of aspirin; E78.5 Hyperlipidemia, unspecified
CPT/HCPCS: 70450; 80048; 80053; 80061; 84484; 85025; 85027; 85730; 93005; 93306; 93458; 96361; 96374; 96375; 96376; 97162; 97165; 99285; C1894; Q9967

== ENCOUNTER → 2024-12-21 13:35 | Outpatient (REF) | payer OTHER, SELFPAY | LOC: HWRAD 13:35 | PROVIDERS: ATTENDING PHYSICIAN Family Medicine | DX: N20.0 Calculus of kidney (principal); M54.50 Low back pain, unspecified | CPT/HCPCS: 74176 ==